=== PATIENT | male | born 1935 | race Caucasian/White ===

== ENCOUNTER 2017-12-23 08:50 | Outpatient (CLI) | payer OTHER ==
[2017-12-23 09:36] LABS: eGFR (African) 58; eGFR (Non-African) 48
[2017-12-23 18:11] LABS: BASO % 0.4 % (0.0-1.5); EOS % 2.6 % (0.0-6.8); LYMPH ABS # 1.41 thou/uL (0.60-4.00); MCH. 31.4 pg (28.0-34.0); MONOCYTE % 6.4 % (0.0-11.0); MONOCYTE ABS # 0.38 thou/uL (0.00-0.90); PLATELET COUNT 188 thou/uL (130-400)
== END 2017-12-23 08:52 ==
LOC: LAB 08:50
PROVIDERS: ATTEND Internal Medicine
DX: I10 Essential (primary) hypertension (principal); E78.5 Hyperlipidemia, unspecified; Z12.5 Encounter for screening for malignant neoplasm of prostate
CPT/HCPCS: 36415; 80053; 80061; 85025

== ENCOUNTER 2018-12-17 23:04 | Emergency (ER) | payer OTHER ==
--- NOTE | 2018-12-17 23:28 | ED Physician Documentation ---
General Adult - HISTORIAN Historian: patient - HPI Stated Complaint: high blood pressure Chief Complaint: General Adult Onset: hours Timing: still present Severity: moderate Further Comments: yes (Pt is an 82 yo male with c/o high blood pressure readings at home. Pt has been having nausea for about [address] Mayers about it. He was put on Reglan, and he attributes his HTN to the Reglan. Pt usually has BP 117/70 on his HTN meds, but today his SBP was 180 at home. After arrival in ER BP went down to 143/81. Pt denies cp, sob. He says he gets a lot of belly gas. Pt is to f/u with Dr. Mayers next week. Pt has not had vomiting. 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), HTN) Allergies/Adverse Reactions: Allergies Allergy/AdvReac Type Severity Reaction Status Date / Time No Known Drug Allergies Allergy Verified 12/17/18 23:19 Home Medications: Ambulatory Orders Medication Instructions Recorded Finasteride [Proscar] 5 mg PO DAILY 12/17/18 Metoclopramide HCl [Reglan] 10 mg PO TID 12/17/18 Tamsulosin HCl 0.4 mg PO DAILY 12/17/18 - SOCIAL HX Smoking History: non-smoker - FAMILY HX Family History: No - REVIEWED ASSESSMENTS Nursing Assessment Reviewed: Yes Vitals Reviewed: Yes Progress - Progress Progress: Simethicone 80 mg po Ativan 1 mg po BP 117/70 Pepcid 20 mg po f/u pcp consider trial of Pepcid for nausea General Adult Physical Exam - PHYSICAL EXAM GENERAL APPEARANCE: mild distress EENT: pharynx normal NECK: normal inspection, supple RESPIRATORY: no resp distress, chest non-tender, breath sounds normal CVS: reg rate & rhythm, heart sounds normal, no murmur ABDOMEN: soft, no organomegaly, normal bowel sounds, tenderness (mild diffuse abd tenderness) BACK: normal inspection, no CVA tenderness SKIN: warm/dry, normal color EXTREMITIES: non-tender, normal range of motion, no evidence of injury NEURO: oriented X3, motor nml, sensation nml Discharge Clincal Impression: persistent nausea HTN (hypertension) Qualifiers: Hypertension type: unspecified Qualified Code(s): I10 - Essential (primary) hypertension Referrals: Aranza Joiner MD [Primary Care Provider] - Condition: Good Disposition: 01 HOME, SELF-CARE Decision to Admit: NO Decision Time: 00:09
[2018-12-17] MEDS ORDERED: SIMETHICONE 80 MG TAB.CHEW PO STA (23:34)
[2018-12-17] MEDS ORDERED: LORazepam 1 MG TABLET PO ONE (23:35)
[2018-12-17 23:49] LABS: BASOPHILS % 1.5 (0.0-1.5); EOSINOPHILS % 2.8 % (0.0-6.8); MEAN CORPUSCULAR HEMOGLOBIN 32.5 pg (28.0-34.0); MONOCYTES % 5.7 % (0.0-11.0); NEUTROPHILS # 4.9 # k/uL (1.4-7.7)
[2018-12-18] MEDS ORDERED: FAMOTIDINE 20 MG TABLET PO ONE (00:08)
[2018-12-18 00:18] VITALS: BP 113/77
== END 2018-12-18 00:18 | disposition home or self-care (01) ==
LOC: ED 23:04
DX: I10 Essential (primary) hypertension (principal); R11.0 Nausea
CPT/HCPCS: 36415; 80053; 85025; 99282; 99283; S1016

== ENCOUNTER 2018-12-29 08:58 | Outpatient (CLI) | payer OTHER | END 2018-12-29 09:00 | LOC: LAB 08:58 | PROVIDERS: ATTEND Internal Medicine | DX: I10 Essential (primary) hypertension (principal); E78.5 Hyperlipidemia, unspecified; R11.0 Nausea; G47.30 Sleep apnea, unspecified | CPT/HCPCS: 36415; 80061 ==

== ENCOUNTER 2019-10-06 15:20 | Outpatient (CLI) | payer OTHER ==
[2019-10-06 15:43] LABS: BASOPHILS % 0.4 % (0.0-1.5); NEUTROPHILS # 4.1 # k/uL (1.4-7.7)
[2019-10-06 17:22] LABS: eGFR (Non-African) 41
== END 2019-10-06 15:25 ==
LOC: LAB 15:20
PROVIDERS: ATTEND Family Medicine
DX: R07.9 Chest pain, unspecified (principal)
CPT/HCPCS: 36415; 80053; 84484; 85025